=== PATIENT | male | born 1955 ===

== ENCOUNTER 2022-10-10 11:42 | Observation (INO) ==
[~2022-10-10 11:42] MED LIST: Buffered Lidocaine 1% SYRIN 1 ml INTRADERM ONE; Famotidine IV 10 MG/ML 2 ml VIAL (20 mg) IV ONE; Lactated Ringers 1000 ml BAG 1,000 ML IV SCH
[2022-10-10] MEDS ORDERED: Midazolam 2 mg/2 ml VIAL 1 mg/ml 2 ml VIAL (2 mg) ONE ×2 (12:04→14:24)
[2022-10-10] MEDS ORDERED: ceFAZolin 2 GM PREMIX 2 GM/50 ML BAG ONE (12:07)
[2022-10-10] MEDS ORDERED: Famotidine IV 10 MG/ML 2 ml VIAL (20 mg) ONE (12:07)
[2022-10-10] MEDS ORDERED: Lidocaine 2% PF 5 ML VIAL ONE (13:12)
[2022-10-10] MEDS ORDERED: ROPIVACAINE 5 MG/ML 30 ML BTL (0.5%) ONE (13:52)
[2022-10-10] MEDS ORDERED: fentaNYL 100 mcg/2 ml 50 MCG/ML VIAL ONE ×3 (14:24→18:06)
[2022-10-10] MEDS ORDERED: Rocuronium 50 mg VIAL 10 mg/ml 5 ml VIAL (50 mg) ONE (14:24)
[2022-10-10] MEDS ORDERED: Lactulose 30 ml UDC PO PRN (15:21)
[2022-10-10] MEDS ORDERED: Ondansetron 4 mg VIAL 2 MG/ML 2 ml VIAL IV PRN (15:21)
[2022-10-10] MEDS ORDERED: Ondansetron ODT 4 mg TAB 4 MG TAB PO PRN (15:21)
[2022-10-10] MEDS ORDERED: Magnesium Hydroxide LIQ 30 ML UDC PO PRN (15:21)
[2022-10-10] MEDS ORDERED: Morphine 2 MG/ML SYRINGE IV PRN (15:21)
[2022-10-10] MEDS ORDERED: Dexamethasone IV 4 MG/ML VIAL 1 ml VIAL ONE (15:38)
[2022-10-10] MEDS ORDERED: Ondansetron 4 mg VIAL 2 MG/ML 2 ml VIAL ONE (15:38)
[2022-10-10] MEDS ORDERED: Lactated Ringers 1000 ml BAG 1,000 ML IV SCH (16:00)
[2022-10-10] MEDS ORDERED: HYDROmorphone 0.5 MG/0.5 ML SYRINGE ONE ×2 (16:08→16:16)
[2022-10-10] MEDS ORDERED: Acetaminophen IV 1 GM/100ML 1,000 MG/100 ML BAG IV ONE (16:24)
[2022-10-10] MEDS: fentaNYL 100 mcg/2 ml 50 MCG/ML VIAL IV PRN ×3 (17:10→18:58)
[2022-10-10] MEDS ORDERED: Metoclopramide 5 MG/ML VIAL (10 mg) IV PRN (18:12)
[2022-10-10] MEDS ORDERED: HYDROmorphone 1 MG/1 ML SYRINGE IV PRN (18:12)
[2022-10-10] MEDS ORDERED: Naloxone 0.4 mg VIAL 0.4 mg/ml 1 ml VIAL IV PRN (18:12)
[2022-10-10] MEDS ORDERED: Labetalol IV 5 MG/ML 20 ml VIAL IV PUSH ONE (18:39)
[2022-10-10] MEDS: Magnesium Hydroxide LIQ 30 ML UDC PO SCH (20:45)
[2022-10-11] MEDS: ceFAZolin 1 GM ADVAN 1 GM in NS 0.9% 50 ML 50 ML IVPB SCH ×2 (00:08→08:05)
[2022-10-11 05:57] LABS: Hematocrit 38 % (42-52); Hemoglobin 12.4 g/dL (14.0-18.0); Platelet Count 197 10^3/uL (150-450)
[2022-10-11 06:20] LABS: Calcium 8.6 mg/dL (8.6-10.3); Creatinine, Serum 0.85 mg/dL (0.67-1.17); Potassium 4.8 mmol/L (3.5-5.0); eGFR CKD-EPI 95.2 (>60)
[2022-10-11] MEDS: Magnesium Hydroxide LIQ 30 ML UDC PO SCH (08:02)
[2022-10-11] MEDS ORDERED: Vitamin THERAPEUTIC TAB PO SCH (09:00)
[2022-10-11 11:01] VITALS: BP 168/93
== END 2022-10-11 12:05 | disposition home or self-care (01) ==
LOC: SSU 11:42 → OR 11:42
PROVIDERS: ADMIT Orthopaedic Surgery Adult Reconstructive Orthopaedic Surgery; ATTEND Orthopaedic Surgery Adult Reconstructive Orthopaedic Surgery

== ENCOUNTER 2023-01-23 08:11 | Observation (INO) ==
[~2023-01-23 08:11] MED LIST changes: -Famotidine IV 10 MG/ML 2 ml VIAL (20 mg) IV ONE
[2023-01-23] MEDS ORDERED: ceFAZolin 2 GM PREMIX 2 GM/50 ML BAG ONE (08:18)
[2023-01-23] MEDS ORDERED: Midazolam 2 mg/2 ml VIAL 1 mg/ml 2 ml VIAL (2 mg) ONE (08:43)
[2023-01-23] MEDS ORDERED: fentaNYL 250 mcg/5 ml 50 MCG/ML 5 ml VIAL (250 MCG) ONE (08:43)
[2023-01-23] MEDS ORDERED: Dexamethasone IV 4 MG/ML VIAL 1 ml VIAL ONE (08:43)
[2023-01-23] MEDS ORDERED: Ondansetron 4 mg VIAL 2 MG/ML 2 ml VIAL ONE (08:43)
[2023-01-23] MEDS ORDERED: Lidocaine 2% PF 5 ML VIAL ONE (08:43)
[2023-01-23] MEDS ORDERED: Propofol 10 MG/ML 20 ML BTL ONE (08:43)
[2023-01-23 08:58] LABS: Rapid COVID-19 Molecular Undetected (Undetected)
[2023-01-23] MEDS ORDERED: ROPIVACAINE 5 MG/ML 30 ML BTL (0.5%) ONE (10:15)
[2023-01-23] MEDS ORDERED: Phenylephrine 40 mcg/mL 10mL (400mcg) SYRINGE ONE (11:23)
[2023-01-23] MEDS ORDERED: HYDROmorphone 0.5 MG/0.5 ML SYRINGE ONE ×3 (12:06→12:40)
[2023-01-23] MEDS ORDERED: Ondansetron ODT 4 mg TAB 4 MG TAB PO PRN (12:21)
[2023-01-23] MEDS ORDERED: Magnesium Hydroxide LIQ 30 ML UDC PO PRN (12:21)
[2023-01-23] MEDS ORDERED: Morphine 2 MG/ML SYRINGE IV PRN (12:21)
[2023-01-23] MEDS ORDERED: Lactulose 30 ml UDC PO PRN (12:21)
[2023-01-23] MEDS ORDERED: Ondansetron 4 mg VIAL 2 MG/ML 2 ml VIAL IV PRN (12:21)
[2023-01-23] MEDS ORDERED: Lactated Ringers 1000 ml BAG 1,000 ML IV SCH (13:00)
[2023-01-23] MEDS ORDERED: Prochlorperazine 5 mg/ml 2 ml VIAL (10 mg) IV PRN (13:08)
[2023-01-23] MEDS ORDERED: Naloxone 0.4 mg VIAL 0.4 mg/ml 1 ml VIAL IV PRN (13:08)
[2023-01-23] MEDS ORDERED: HYDROmorphone 1 MG/1 ML SYRINGE ONE (14:36)
[2023-01-23] MEDS ORDERED: Prochlorperazine 5 mg/ml 2 ml VIAL (10 mg) ONE (14:36)
[2023-01-23] MEDS: HYDROmorphone 1 MG/1 ML SYRINGE IV PRN ×4 (14:41→15:07)
[2023-01-23] MEDS: Magnesium Hydroxide LIQ 30 ML UDC PO SCH (19:26)
[2023-01-23] MEDS: ceFAZolin 1 GM ADVAN 1 GM in NS 0.9% 50 ML 50 ML IVPB SCH (19:28)
[2023-01-24] MEDS: ceFAZolin 1 GM ADVAN 1 GM in NS 0.9% 50 ML 50 ML IVPB SCH ×2 (03:14→10:47)
[2023-01-24 06:59] LABS: Hematocrit 35.2 % (38-53); Hemoglobin 12.1 g/dL (13.2-16.3); Mean Platelet Volume 7.8 fL (7.5-11.2); Platelet Count 209 10^3/uL (150-450)
[2023-01-24 07:10] LABS: Calcium 8.8 mg/dL (8.6-10.3); Creatinine, Serum 0.75 mg/dL (0.67-1.17); Potassium 4.7 mmol/L (3.5-5.0); eGFR CKD-EPI 98.9 (>60)
[2023-01-24] MEDS: Magnesium Hydroxide LIQ 30 ML UDC PO SCH (07:53)
[2023-01-24] MEDS ORDERED: Vitamin THERAPEUTIC TAB PO SCH (09:00)
[2023-01-24 10:43] VITALS: BP 159/91
== END 2023-01-24 13:01 | disposition home or self-care (01) ==
LOC: SSU 08:11 → OR 08:11
PROVIDERS: ADMIT Orthopaedic Surgery Adult Reconstructive Orthopaedic Surgery; ATTEND Orthopaedic Surgery Adult Reconstructive Orthopaedic Surgery